=== PATIENT | female | born 1980 | race Caucasian/White ===

== ENCOUNTER 2023-10-28 22:54 | Outpatient (CLI) | payer OTHER ==
[~2023-10-28] VITALS: Ht 165.1 cm; Wt 121.1 kg
[2023-10-29] MEDS ORDERED: PRENATAL TABLE1 EAC4 PO (00:31)
[2023-10-29] MEDS ORDERED: SYNTHROID75 MCG PO (00:32)
[2023-10-29] MEDS ORDERED: RINGERS SOLUTION,LACTATED 1,000 ML IV SCH (00:45)
[2023-10-29] MEDS ORDERED: CLINDAMYCIN HC300 MG PO (00:49)
[2023-10-29 01:36] LABS: URINE APPEARANCE Clear; URINE BILIRRUBIN Negative (NEGATIVE); URINE BLOOD Negative; URINE COLOR Yellow; URINE GLUCOSE Negative (NEGATIVE); URINE LEUKOCYTE Trace; URINE NITRATE Negative; URINE PROTEIN Negative (NEGATIVE)
[2023-10-29 01:39] LABS: URINE BACTERIA 364.1 uL (0.0-1933); URINE EPITHELIAL CELLS 13.2 uL (0.0-38.8); URINE RBC 14.5 uL (0.0-20.8); URINE WBC 8.5 uL (0.0-23.2)
[2023-10-29 01:42] LABS: HEMATOCRIT 33.5 % (36.0-45.00); HEMOGLOBIN 10.9 g/dL (12.0-15.00); MEAN CELL VOLUME 87.5 fL (80.00-100.00); MEAN CORPUSCULAR HEMOGLOBIN 28.6 pg (27.00-32.0); MEAN CORPUSCULAR HGB CONC 32.7 g/dl (32.0-36.0); PLATELET COUNT 322 K/uL (150-450); RED BLOOD COUNT 3.83 M/uL (4.00-6.00); RED CELL DISTRIBUTION WIDTH 15.9 % (11.5-14.5)
[2023-10-29 02:17] LABS: ALBUMIN 2.7 gm/dL (3.4-5.0); BILIRUBIN TOTAL 0.35 mg/dL (0.3-1.2); CALCIUM 9.1 mg/dL (8.5-10.1); CREATININE SERUM 0.59 mg/dL (0.55-1.02); GFR 112.32; GLOBULINA 3.9 G/DL (2.4-3.5); POTASSIUM 4.57 mEq/L (3.5-5.1); TOTAL PROTEIN 6.6 gm/dL (6.4-8.2)
[2023-10-29 02:36] LABS: INR 0.96; PROTHROMBIN TIME 10.1 SECONDS (9.0-11.5)
[2023-10-29 02:54] LABS: PARTIAL THROMBOPLASTIN TIME 30.1 SECONDS (22.0-34.0)
[2023-10-29 03:21] LABS: URINE CRYSTALS FEW /HPF
[2023-10-29] MEDS ORDERED: LEVOTHYROXINE SODIUM 75 MCG TABLET PO SCH (06:00)
[2023-10-29] MEDS ORDERED: CLINDAMYCIN PHOSPHATE 150 MG/ML (900mg) ONE (08:30)
[2023-10-29] MEDS ORDERED: CLINDAMYCIN HCL 300 MG CAPSULE PO SCH (09:00)
[2023-10-30 02:38] LABS: URINE PROT QUANT 24HR 12.1 MG/DL
[2023-10-30 02:42] LABS: URINE PROT QUANT 24 HR 178.48 MG/24HR (42-225)
[2023-10-30 02:53] LABS: CREATINE CLEARANCE 196.2 ML/MIN (97-137); CREATININE SERUM 0.5 mg/dL (0.6-1.0)
== END 2023-10-30 04:46 | disposition home or self-care (01) ==
LOC: OBS/DEL 22:54
PROVIDERS: ATTEND Specialist
DX: O26.893 Other specified pregnancy related conditions, third trimester (principal); Z3A.37 37 weeks gestation of pregnancy

== ENCOUNTER 2023-11-04 19:49 | Inpatient (IN) | payer OTHER ==
[~2023-11-04] VITALS: Ht 165.1 cm; Wt 119.3 kg
[~2023-11-04 19:49] MED LIST: CLINDAMYCIN HC300 MG PO; PRENATAL TABLE1 EAC4 PO; SYNTHROID75 MCG PO
[2023-11-04 20:24] LABS: HEMATOCRIT 33.7 % (36.0-45.00); HEMOGLOBIN 11.3 g/dL (12.0-15.00); MEAN CELL VOLUME 88.1 fL (80.00-100.00); MEAN CORPUSCULAR HEMOGLOBIN 29.6 pg (27.00-32.0); MEAN CORPUSCULAR HGB CONC 33.6 g/dl (32.0-36.0); PLATELET COUNT 300 K/uL (150-450); RED BLOOD COUNT 3.82 M/uL (4.00-6.00)
[2023-11-04 20:36] LABS: PH,URINE 5.5 (5.0-8.0); URINE APPEARANCE Clear; URINE BILIRRUBIN Negative (NEGATIVE); URINE BLOOD Negative; URINE COLOR Yellow; URINE GLUCOSE Negative (NEGATIVE); URINE LEUKOCYTE Small; URINE NITRATE Negative; URINE PROTEIN Negative (NEGATIVE)
[2023-11-04 20:37] LABS: URINE BACTERIA 433.2 uL (0.0-1933); URINE EPITHELIAL CELLS 17.4 uL (0.0-38.8); URINE RBC 4.5 uL (0.0-20.8); URINE WBC 27.2 uL (0.0-23.2)
[2023-11-04 20:43] LABS: INR 0.95; PARTIAL THROMBOPLASTIN TIME 28.9 SECONDS (22.0-34.0)
[2023-11-04 20:48] LABS: ALBUMIN 2.8 gm/dL (3.4-5.0); BILIRUBIN TOTAL 0.49 mg/dL (0.3-1.2); CALCIUM 8.9 mg/dL (8.5-10.1); CREATININE SERUM 0.55 mg/dL (0.55-1.02); GFR 121.8; GLOBULINA 3.9 G/DL (2.4-3.5); POTASSIUM 4.16 mEq/L (3.5-5.1); TOTAL PROTEIN 6.7 gm/dL (6.4-8.2)
[2023-11-04] MEDS ORDERED: OXYTOCIN 10 UNITS/ML VIAL ONE (20:55)
[2023-11-04] MEDS ORDERED: ERYTHROMYCIN BASE 3.5 GM OINT...G. OP ONE (20:56)
[2023-11-04] MEDS ORDERED: CITRIC ACID/SODIUM CITRATE 30 ML BLIST.PACK PO ONE (21:27)
[2023-11-04] MEDS ORDERED: METOCLOPRAMIDE HCL 5 MG/ML VIAL ONE (21:27)
[2023-11-04] MEDS ORDERED: CEFAZOLIN SODIUM 2,000 MG in 0.9 % SODIUM CHLORIDE 100 ML IV SCH (21:45)
[2023-11-04] MEDS ORDERED: RINGERS SOLUTION,LACTATED 1,000 ML IV SCH (21:45)
[2023-11-04] MEDS ORDERED: ERYTHROMYCIN BASE 1 GM TUBE OP ONE (23:00)
[2023-11-04] MEDS ORDERED: MEPERIDINE HCL/PF 50 MG/ML VIAL IV SCH (23:00)
[2023-11-04] MEDS ORDERED: PROMETHAZINE HCL 50 MG/ML AMPUL IV SCH (23:00)
[2023-11-04] MEDS ORDERED: CEFAZOLIN SODIUM 1,000 MG VIAL IV ONE (23:00)
[2023-11-04] MEDS ORDERED: OXYTOCIN 10 UNITS/ML VIAL IV ONE (23:00)
[2023-11-04 23:41] LABS: ABG PH 7.166 (7.35-7.45)
[2023-11-04 23:42] LABS: ABG PO2 21.1 mmHg (80-100); BASE EXCESS -9.1 mmol/l; BICARBONATE 20.1 mmol/l (23-25); SaO2 20.7 %; Tco2 21.9 mmol/l; o2 21 %
[2023-11-05 04:07] LABS: HEMATOCRIT 30.7 % (36.0-45.00); HEMOGLOBIN 10.4 g/dL (12.0-15.00); MEAN CELL VOLUME 87.2 fL (80.00-100.00); MEAN CORPUSCULAR HEMOGLOBIN 29.3 pg (27.00-32.0); MEAN CORPUSCULAR HGB CONC 33.7 g/dl (32.0-36.0); PLATELET COUNT 262 K/uL (150-450); RED BLOOD COUNT 3.53 M/uL (4.00-6.00); RED CELL DISTRIBUTION WIDTH 16.4 % (11.5-14.5)
[2023-11-05] MEDS ORDERED: OxyCODONE HCL/APAP UD (PERCOCET) PO SCH ×2 (07:00→12:00)
[2023-11-05] MEDS ORDERED: DOCUSATE CALCIUM 240 MG CAPSULE PO SCH (09:00)
[2023-11-05] MEDS ORDERED: SIMETHICONE 125 MG CAPSULE PO SCH (09:00)
[2023-11-05] MEDS ORDERED: ENOXAPARIN SODIUM 40 MG/0.4 ML SYRINGE SUBCUTANEO ONE (11:00)
== END 2023-11-07 14:58 | disposition home or self-care (01) | DRG 785 ==
LOC: OB/GYN 19:49 → LDR 19:49 → O/R 22:17 → OB/GYN 11-05
PROVIDERS: ADMIT Specialist; ATTEND Specialist
PROC: 0UB70ZZ Excision of Bilateral Fallopian Tubes, Open Approach (ICD-10-PCS; 2023-11-04)
PROC: 0UB90ZZ Excision of Uterus, Open Approach (ICD-10-PCS; 2023-11-04)
PROC: 4A1HXCZ Monitoring of Products of Conception, Cardiac Rate, External Approach (ICD-10-PCS; 2023-11-04)
PROC: 10D00Z1 Extraction of Products of Conception, Low, Open Approach (ICD-10-PCS; principal; 2023-11-04 21:15)
DX: O13.4 Gestational [pregnancy-induced] hypertension without significant proteinuria, complicating childbirth (principal); O34.13 Maternal care for benign tumor of corpus uteri, third trimester; D25.9 Leiomyoma of uterus, unspecified; O99.214 Obesity complicating childbirth; E66.8 Other obesity; Z3A.38 38 weeks gestation of pregnancy; Z37.0 Single live birth; Z30.2 Encounter for sterilization; Z20.822 Contact with and (suspected) exposure to COVID-19